=== PATIENT | female | born 1935 | race Caucasian/White ===

== ENCOUNTER 2016-11-18 15:53 | Inpatient (IN) | payer MEDICARE, OTHER ==
[~2016-11-18] VITALS: Ht 157.5 cm; Wt 64.1 kg
[2016-11-18 16:54] LABS: ADD SCAN DIFF NO
[2016-11-18 16:58] LABS: BASOPHILS % 0.6 % (0.0-2.0); EOSINOPHILS # 0.1 10^3/ul (0.0-0.5); EOSINOPHILS % 1.9 % (0.0-7.0); HEMATOCRIT 39.4 % (37.0-47.0); HEMOGLOBIN 12.7 g/dl (12.0-16.0); LYMPHOCYTES # 1.2 10^3/ul (0.8-2.9); LYMPHOCYTES % 19.6 % (15.0-51.0); MEAN CORPUSCULAR HEMOGLOBIN 27.7 pg (29.0-33.0); MEAN CORPUSCULAR HGB CONC 32.2 g/dl (32.0-37.0); MEAN PLATELET VOLUME 9.1 fl (7.4-10.4); MONOCYTE # 0.5 10^3/ul (0.3-0.9); MONOCYTES % 7.6 % (0.0-11.0); NEUTROPHIL # 4.4 10^3/ul (1.6-7.5); NEUTROPHILS % 70.1 % (39.0-77.0); PLATELET COUNT 209 10^3/UL (140-415); RED BLOOD COUNT 4.58 10^6/ul (4.20-5.40); RED CELL DISTRIBUTION WIDTH 13.5 % (11.5-14.5); WHITE BLOOD COUNT 6.2 10^3/ul (4.8-10.8)
[2016-11-18] MEDS ORDERED: LOSA25TA5 PO (17:03)
[2016-11-18] MEDS ORDERED: HYDR12.58 PO (17:04)
[2016-11-18 17:13] LABS: INR 1.09; PROTIME 14.1 Sec (12.2-14.2); PT RATIO 1.1
[2016-11-18 17:14] LABS: PARTIAL THROMBOPLASTIN TIME 30.2 Sec (25.0-35.0)
[2016-11-18 17:26] LABS: ALANINE AMINOTRANSFERASE 31 IU/L (13-69); ALBUMIN 4.2 g/dl (3.3-4.9); ALBUMIN/GLOBULIN RATIO 1.68; ALKALINE PHOSPHATASE 84 IU/L (42-121); ANION GAP 11 (8-16); ASPARTATE AMINO TRANSFERASE 27 IU/L (15-46); BILIRUBIN,INDIRECT 0.1 mg/dl (0-1.1); BILIRUBIN,TOTAL 0.1 mg/dl (0.2-1.3); BLOOD UREA NITROGEN 14 mg/dl (7-20); CALCIUM 9.8 mg/dl (8.4-10.2); CARBON DIOXIDE 28 mmol/L (21-31); CHLORIDE 103 mmol/L (97-110); CREATININE 0.68 mg/dl (0.44-1.00); GLUCOSE 125 mg/dl (70-220); POTASSIUM 3.3 mmol/L (3.5-5.1); SODIUM 139 mmol/L (135-144); TOTAL PROTEIN 6.7 g/dl (6.1-8.1)
[2016-11-18 17:33] LABS: B-TYPE NATRIURETIC PEPTIDE 74 PG/ML (0-450)
[2016-11-18 17:37] LABS: TROPONIN-I < 0.012 ng/ml (0.00-0.12)
--- NOTE | 2016-11-18 18:01 | RADRPT ---
PROCEDURE: XR Chest. CLINICAL INDICATION: Chest pain TECHNIQUE: Chest AP portable. COMPARISON: No comparison available. FINDINGS: The mediastinal structures are unremarkable. There is calcification of the thoracic aorta (consiste nt with atherosclerosis). There is mild cardiomegaly. The pulmonary vascularity is normal. There is mild left basilar subsegmental atelectasis. No consolidation is identified. The pleural spaces are unremarkable. There are senescent changes of the axial skeleton. IMPRESSION: Calcification of the thoracic aorta (consistent with atherosclerosis) Mild cardiomegaly Mild left basilar subsegmental atelectasis No consolidation or failure identified RPTAT: HGDB .Manuelito Young MD, MD Date Time Electronically viewed and signed by .Manuelito Young MD, on 11/18/2016 18:01 .B/
[2016-11-18] MEDS ORDERED: POTASSIUM CHLORIDE (SR) 20 MEQ TAB PO STA (18:06)
--- NOTE | 2016-11-18 18:41 | ERA ---
ER Documentation Chief Complaint Date/Time DATE: 11/18/16 TIME: 18:32 Chief Complaint CHEST PAIN SENT FROM MD OFFICE; 16 2ASA 1 NITRO GIVEN HPI 81-year-old female with a history of cardiac problems including mitral and aortic valve problems and hypertension presenting with shortness of breath and chest pain from Dr. Pro's office. She states that for the past 3 days she has been feeling short of breath especially with exertion. She has had no associated cough. Today she started feeling some chest pressure, not pleuritic. Chest pressure is nonradiating. She has associated lightheadedness and feels like "something is not getting to my brain". She denies any fever, chills, nausea, vomiting, hematochezia, melena, abdominal pain, or dysuria. She has never had symptoms like this before. She denies any recent surgery, immobilization, or travel. No history of cancer or blood clots. She was given aspirin 162 mg prior to transfer to the ED ROS All systems reviewed and are negative except as per history of present illness. Medications Home Meds Reported Medications Hydrochlorothiazide* (Hydrochlorothiazide*) 12.5 Mg Tablet, 12.5 MG PO DAILY, # 30 TAB 11/18/16 Losartan Potassium* (Losartan Potassium*) 25 Mg Tablet, 25 MG PO DAILY, TAB 11/18/16 Allergies Allergies: Coded Allergies: No Known Allergy (Unverified , 11/18/16) PMhx/Soc Hx Cardiac Disorders: Yes (Mitral and aortic valve problem, specifical problem unknown per patient. Hypertension.) Hx Miscellaneous Medical Probl: No Hx Alcohol Use: No Hx Substance Use: No Hx Tobacco Use: No Smoking Status: Never smoker FmHx Family History: No diabetes Physical Exam Vitals Vital Signs Date Time Temp Pulse Resp B/P Pulse Ox O2 Delivery O2 Flow Rate FiO2 11/18/16 18:36 74 18 125/63 96 Room Air 11/18/16 16:25 Nasal Cannula 11/18/16 16:02 98.0 81 18 139/78 96 Physical Exam Const: Well-appearing, no apparent distress, nontoxic, nondiaphoretic Head: Atraumatic Eyes: Normal Conjunctiva ENT: Normal External Ears, Nose and Mouth. Neck: Full range of motion. No JVD. No meningismus. Resp: Diminished breath sounds at the posterior lower lung davis, left greater than right, no wheezing rales or rhonchi Cardio: Regular rate and rhythm, distant heart sounds, no obvious murmurs auscultated, however exam limited. 2+ radial pulses bilaterally, equal. 2+ DP and PT pulses bilaterally. Abd: Soft, non tender, non distended. Normal bowel sounds Skin: No petechiae or rashes Back: No midline or flank tenderness Ext: No cyanosis, or edema. No calf tenderness to palpation Neur: Awake and alert and oriented 3, cranial nerves intact, strength and sensations intact in all 4 extremities Psych: Normal Mood and Affect Result Diagram: 11/18/16 1645 11/18/16 1645 Results 24 hrs Laboratory Tests Test 11/18/16 16:45 White Blood Count 6.210^3/ul Red Blood Count 4.5810^6/ul Hemoglobin 12.7g/dl Hematocrit 39.4% Mean Corpuscular Volume 86.0fl Mean Corpuscular Hemoglobin 27.7pg Mean Corpuscular Hemoglobin Concent 32.2g/dl Red Cell Distribution Width 13.5% Platelet Count 53677^3/UL Mean Platelet Volume 9.1fl Neutrophils % 70.1% Lymphocytes % 19.6% Monocytes % 7.6% Eosinophils % 1.9% Basophils % 0.6% Nucleated Red Blood Cells % 0.0/100WBC Neutrophils # 4.410^3/ul Lymphocytes # 1.210^3/ul Monocytes # 0.510^3/ul Eosinophils # 0.110^3/ul Basophils # 0.010^3/ul Nucleated Red Blood Cells # 0.010^3/ul Prothrombin Time 14.1Sec Prothrombin Time Ratio 1.1 INR International Normalized Ratio 1.09 Activated Partial Thromboplast Time 30.2Sec D-Dimer 276.00ng/ml D-Dimer Comment Sodium Level 139mmol/L Potassium Level 3.3mmol/L Chloride Level 103mmol/L Carbon Dioxide Level 28mmol/L Anion Gap 11 Blood Urea Nitrogen 14mg/dl Creatinine 0.68mg/dl Glucose Level 125mg/dl Calcium Level 9.8mg/dl Total Bilirubin 0.1mg/dl Direct Bilirubin 0.00mg/dl Indirect Bilirubin 0.1mg/dl Aspartate Amino Transf (AST/SGOT) 27IU/L Alanine Aminotransferase (ALT/SGPT) 31IU/L Alkaline Phosphatase 84IU/L Troponin I < 0.012ng/ml B-Type Natriuretic Peptide 74PG/ML Total Protein 6.7g/dl Albumin 4.2g/dl Globulin 2.50g/dl Albumin/Globulin Ratio 1.68 Current Medications Medications (Trade) Dose Ordered Sig/Nas Route PRN Reason Start Time Stop Time Status Last Admin Dose Admin Potassium Chloride (Klor-Con 20) 40 meq ONCE STAT PO 11/18/16 18:06 11/18/16 18:07 DC 11/18/16 18:31 Ondansetron HCl (Zofran Inj) 4 mg ER BRIDGE PRN IV NAUSEA AND/OR VOMITING 11/18/16 19:00 11/19/16 18:59 Acetaminophen (Tylenol Tab) 650 mg ER BRIDGE PRN PO MILD PAIN/FEVER 11/18/16 19:00 11/19/16 18:59 Procedures/MDM EKG: Rate/Rhythm: Sinus rhythm with first-degree AV block QRS, ST, T-waves: Right bundle branch block, no changes consistent w/ acute ischemia Impression: No evidence of ischemia or arrhythmia Chest x-ray: IMPRESSION: Calcification of the thoracic aorta (consistent with atherosclerosis) Mild cardiomegaly Mild left basilar subsegmental atelectasis No consolidation or failure identified RPTAT: HGDB .Manuelito Young MD, MD Date Time Electronically viewed and signed by .Manuelito Young MD, MD on 11/18/2016 18:01 Labs: CBC and CMP normal other than mild hypokalemia. Troponin within normal limits. BNP within normal limits. D-dimer normal [facility] Patients symptoms are concerning for a cardiac etiology. Other etiologies considered were PE, aortic dissection, pneumonia, pneumothorax, esophageal rupture. EKG showed no acute ischemia but was not normal. Initial troponin negative. CXR grossly unremarkable. However patient has an intermediate risk of adverse events. Plan to admit for further evaluation. At this time, she is low risk for PE per well's criteria, so d-dimer was ordered as everything else is normal to evaluate for any possibility of PE. Aspirin already given prior to arrival. Patient is not safe for discharge and will need inpatient monitoring and further evaluation. Further workup will be deferred to the inpatient team. Accepting Care Team: Current data and ongoing care discussed. Time: Time of admission Primary Provider: Ronen Consulting: none Outstanding Data: none Departure Diagnosis: Primary Impression: Chest pressure Additional Impressions: Dyspnea Qualified Code: R06.02 - Shortness of breath Hypokalemia Condition: Fair STEVE ROTHMAN MD Nov 18, 2016 18:41
[2016-11-18] MEDS ORDERED: ONDANSETRON 4 MG INJ IV PRN ×2 (19:00→22:00)
[2016-11-18] MEDS ORDERED: ACETAMINOPHEN 325 MG TAB PO PRN ×2 (19:00→22:00)
[2016-11-18 21:10] VITALS: Ht 157.5 cm; Wt 64.1 kg
[2016-11-18 21:15] VITALS: BP 150/67; RESP 18
[2016-11-18 21:26] VITALS: PULSE 80
[2016-11-18] MEDS ORDERED: morphine 2 MG INJ IV PRN (22:00)
[2016-11-18] MEDS ORDERED: NACL 0.9% 3 ML SYG IV SCH (22:00)
[2016-11-18] MEDS: SOD CHLORIDE 0.9% 1,000 ML IV SCH (22:12)
[2016-11-18 22:50] LABS: CK-MB 1.55 ng/ml (0.0-2.4)
[2016-11-18 22:54] LABS: TROPONIN-I 0.231 ng/ml (0.00-0.12)
[2016-11-18 23:49] VITALS: BP 143/63; RESP 18
[2016-11-19] VITALS (25 sets, daily range): BP systolic 121–140; BP diastolic 48–73; PULSE 63–84; RESP 15–37
--- NOTE | 2016-11-19 02:12 | HP ---
Date/Time of Note Date/Time of Note DATE: 11/19/16 TIME: 02:07 Assessment/Plan VTE Prophylaxis VTE Prophylaxis Intervention: LMWH Lines/Catheters IV Catheter Type (from Nrs): Saline Lock Assessment/Plan Chief Complaint/Hosp Course This is a 81 year old female being admitted to the telemetry floor for: 1. Chest pain: rule out ACS. Currently patient is chest pain free. EKG does not show any acute ST elevation. There does appear to be a right bundle branch block. We will will trend cardiac enzymes, first set of cardiac enzymes were negative. Morphine prn chest pain. Consult cardiology. Echo in the AM. Lipid panel. 2. HTN: continue hctz, arb #3 hypokalemia: We will replete potassium check in the a.m. #4 DVT and GI prophylaxis: Lovenox, Protonix Problems: HPI/ROS Admit Date/Time Admit Date/Time Nov 18, 2016 at 18:55 Hx of Present Illness Chief complaint: chest pain x 3 days 81-year-old female with a history of cardiac problems including mitral and aortic valve problems and hypertension presenting with shortness of breath and chest pain from Dr. Pro's office. She states that for the past 3 days she has been feeling short of breath especially with exertion. She has had no associated cough. Today she started feeling some chest pressure, not pleuritic. Chest pressure is nonradiating. She has associated lightheadedness and feels like "something is not getting to my brain". She denies any fever, chills, nausea, vomiting, hematochezia, melena, abdominal pain, or dysuria. She has never had symptoms like this before. She denies any recent surgery, immobilization, or travel. No history of cancer or blood clots. She was given aspirin 162 mg prior to transfer to the ED. allergies: nkda Medications: See AUG ROS Const: As per HPI Eyes : No pain discharge or redness or change in visual acuity ENT: No pain, sore throat, congestion, congestion, dysphagia or discharge Respiratory: No shortness of breath, cough, sputum, wheezing, or pleuritic pain Cardiovascular: As per HPI GI : no change in appetite, abdominal pain, nausea, vomiting, diarrhea, constipation, or change in the color his stool Genitourinary: No dysuria, hematuria, flank pain , discharge or CVA tenderness Musculoskeletal: No joint pain, back pain, neck pain, restricted range of motion in neck or joints Skin: No rash, bruising or hives Neuro: No headache, dizziness, syncope, seizure, focal weakness Endocrine: No polyuria, polydipsia, temperature intolerance Psych: No hallucination, depression, anxiety or suicidal ideation PMH/Family/Social Past Medical History mitral and aortic valve "problems", HTN Past Surgical History tubal ligation, intestinal surgery? Family History Significant Family History: no pertinent family hx Social History Alcohol Use: none Smoking Status: Never smoker Drug Use: none Exam/Review of Systems Vital Signs Vitals Vital Signs Date Time Temp Pulse Resp B/P Pulse Ox O2 Delivery O2 Flow Rate FiO2 11/19/16 00:07 69 11/18/16 23:49 97.9 18 143/63 96 11/18/16 21:30 Nasal Cannula 2.0 Exam Exam General: Patient is well-developed well-nourished The patient is alert oriented -3 lying comfortably in bed. HEENT: Atraumatic, normocephalic. The pupils are equal, round and reactive. Extraocular motor are intact Neck: Supple with full range of motion. No rigidity or meningismus Chest: Nontender Lungs: Clear to auscultation bilaterally no crackles rales or wheezing Heart: Normal S1-S2, Regular rhythm and rate. No murmurs appreciated Abdomen: Soft , nontender, nondistended , bowel sounds are present. No guarding no rebound tenderness , No masses or organomegaly. Extremities: Normal to inspection, no edema no cyanosis Neurologic: Normal mental status, speech normal, cranial nerves II through XII are intact, motor and sensory are intact, no focal weakness Additional Comments EKG: Rate/Rhythm: Sinus rhythm with first-degree AV block QRS, ST, T-waves: Right bundle branch block, no changes consistent w/ acute ischemia As per ED physician documentation PROCEDURE: XR Chest. CLINICAL INDICATION: Chest pain TECHNIQUE: Chest AP portable. COMPARISON: No comparison available. FINDINGS: The mediastinal structures are unremarkable. There is calcification of the thoracic aorta (consistent with atherosclerosis). There is mild cardiomegaly. The pulmonary vascularity is normal. There is mild left basilar subsegmental atelectasis. No consolidation is identified. The pleural spaces are unremarkable. There are senescent changes of the axial skeleton. IMPRESSION: Calcification of the thoracic aorta (consistent with atherosclerosis) Mild cardiomegaly Mild left basilar subsegmental atelectasis No consolidation or failure identified RPTAT: HGDB .Manuelito Young MD, Date Time Electronically viewed and signed by .Manuelito Young MD, on 11/18/2016 18:01 Labs Result Diagram: 11/18/16 1645 11/18/16 1645 Medications Medications Current Medications Sodium Chloride (NS) 1,000 ml @ 40 mls/hr Q24H IV Last administered on 22:12; Admin Dose 40 MLS/HR; Start 11/18/16 at 21:41 Ondansetron HCl (Zofran Inj) 4 mg Q6H PRN IV NAUSEA AND/OR VOMITING; Start at 22:00 Acetaminophen (Tylenol Tab) 650 mg Q6H PRN PO PAIN LEVEL 1-3 OR FEVER; Start at 22:00 Morphine Sulfate (morphine) 2 mg Q4H PRN IV PAIN LEVEL 7-10 Last administered on 11/18/16 22:12; Admin Dose 2 MG; Start 11/18/16 at 22:00 Pantoprazole (Protonix Iv) 40 mg DAILY@06 IV ; Start 11/19/16 at 06:00 Enoxaparin Sodium (Lovenox) 40 mg DAILY SC ; Start 11/19/16 at 09:00 Hydrochlorothiazide (Hydrochlorothiazide) 12.5 mg DAILY PO ; Start 11/19/16 at 09:00 Losartan Potassium (Cozaar) 25 mg DAILY PO ; Start 11/19/16 at 09:00 ANA SALGADO Nov 19, 2016 02:12
[2016-11-19] MEDS ORDERED: HEPARIN 1000 UNITS/ML 10 ML INJ IV ONE (02:30)
[2016-11-19] MEDS: HEPARIN 25000 UNITS/D5W 250 ML IV SCH ×2 (02:44→09:30)
[2016-11-19] MEDS: PANTOPRAZOLE 40 MG INJ IV SCH (05:37)
[2016-11-19 07:53] LABS: ADD SCAN DIFF NO
[2016-11-19 07:56] LABS: BASOPHILS % 0.6 % (0.0-2.0); EOSINOPHILS # 0.1 10^3/ul (0.0-0.5); EOSINOPHILS % 2.8 % (0.0-7.0); HEMATOCRIT 37.2 % (37.0-47.0); HEMOGLOBIN 12.4 g/dl (12.0-16.0); LYMPHOCYTES # 1.4 10^3/ul (0.8-2.9); LYMPHOCYTES % 29.1 % (15.0-51.0); MEAN CORPUSCULAR HGB CONC 33.3 g/dl (32.0-37.0); MEAN CORPUSCULAR VOLUME 87.1 fl (82.0-101.0); MEAN PLATELET VOLUME 9.1 fl (7.4-10.4); MONOCYTE # 0.4 10^3/ul (0.3-0.9); MONOCYTES % 8.9 % (0.0-11.0); NEUTROPHIL # 2.9 10^3/ul (1.6-7.5); NEUTROPHILS % 58.4 % (39.0-77.0); PLATELET COUNT 197 10^3/UL (140-415); RED BLOOD COUNT 4.27 10^6/ul (4.20-5.40); RED CELL DISTRIBUTION WIDTH 13.4 % (11.5-14.5)
[2016-11-19 08:18] LABS: CREATINE KINASE 23 IU/L (23-200)
[2016-11-19] MEDS: LOSARTAN 25 MG TAB PO SCH (08:29)
[2016-11-19] MEDS ORDERED: HEPARIN 1000 UNITS/ML 10 ML INJ IV PRN (08:30)
[2016-11-19 08:31] LABS: CK-MB 0.45 ng/ml (0.0-2.4)
[2016-11-19 08:46] LABS: TROPONIN-I < 0.012 ng/ml (0.00-0.12)
[2016-11-19] MEDS ORDERED: HYDROCHLOROTHIAZIDE 12.5 MG CAP PO SCH (09:00)
[2016-11-19] MEDS ORDERED: ENOXAPARIN 40 MG/0.4 ML SYG SC SCH (09:00)
[2016-11-19] MEDS ORDERED: FENTAnyl 50 MCG/ML VIAL ONE (14:14)
[2016-11-19] MEDS ORDERED: VERAPAMIL 5 MG INJ ONE (14:14)
[2016-11-19] MEDS ORDERED: MIDAZOLAM 1 MG/ML 2 ML INJ ONE (14:14)
[2016-11-19] MEDS ORDERED: NITROGLYCERIN (IC) 100 MCG/ML INJ ONE (14:14)
[2016-11-19] MEDS ORDERED: HEPARIN 1000 UNITS/ML 10 ML INJ ONE (14:14)
[2016-11-19] MEDS ORDERED: IODIXANOL LOCM 100 ML BTL ONE ×2 (14:14→15:10)
[2016-11-19] MEDS ORDERED: LIDOCAINE 1% (MDV) 20 ML INJ ONE (14:14)
--- NOTE | 2016-11-19 14:16 | RADRPT ---
Echocardiogram Report Patient Name: ELE WEEKS Gender: Female Date: 1935 Study Date: 19-Nov-2016 Chopped Strand Operator: [facility] Location: 5545 Ref. Physician: ANA SALGADO Quality: Technically Difficult Study Procedures: Transthoracic echocardiogram with complete 2D, M-Mode, and doppler examination. Indications: Chest Pain. 2D/M Mode Doppler Measurement Value Normal Ranges Measurement Value Normal Ranges LVIDd 2D 4.7 3.5 - 5.6 cm AV Peak Binu 1.2 m/sec LVIDs 2D 3.2 2.1 - 4.1 cm AV Peak PG 5.5 mmHg LVPWd 2D 1.2 0.6 - 1.1 cm LVOT Peak Binu 1.1 m/sec IVSd 2D 1.2 0.6 - 1.1 cm LVOT Peak PG 4.8 mmHg AoR Diam 2D 3.0 2.0 - 3.7 cm MV E Peak Binu 0.8 m/sec EDV 2D 100.2 cm3 MV A Peak Binu 1.2 m/sec ESV 2D 32.8 cm3 MV E/A 0.6 LA Dimen 2D 4.0 2.3 - 4.0 cm MV Decel Time 122 msec MV Decel [place] 6 MV E/A 0.6 Findings Left Ventricle: Normal left ventricular systolic function. Normal left ventricular cavity size. Left ventricular wall thickness upper limits of normal. Ejection fraction is visually estimated at 65 %. Abnormal Diastolic Function. Right Ventricle: Normal right ventricular size. Normal right ventricular systolic function. Left Atrium: The left atrium is normal in size. Right Atrium: There is mild enlargement of right atrium. Mitral Valve: Mitral valve leaflets appear mildly thickened. Mild mitral annular calcification. Mild mitral valve regurgitation. Aortic Valve: No hemodynamically significant aortic stenosis by doppler. Aortic cusps appear mildly calcified. Trace to mild aortic valve regurgitation. Tricuspid Valve: Tricuspid valve not well visualized. There is trace tricuspid regurgitation. Pulmonic Valve: Normal pulmonic valve appearance. Pericardium: Normal pericardium with no significant pericardial effusion. Aorta: Normal aortic root. IVC: Normal size and normal respiratory collapse consistent with normal right atrial pressure. Conclusions Normal left ventricular systolic function. Normal left ventricular cavity size. Left ventricular wall thickness upper limits of normal. Ejection fraction is visually estimated at 65 %. Abnormal Diastolic Function. Normal right ventricular size. Normal right ventricular systolic function. The left atrium is normal in size. There is mild enlargement of right atrium. Mild mitral valve regurgitation. No hemodynamically significant aortic stenosis by doppler. Aortic cusps appear mildly calcified. Trace to mild aortic valve regurgitation. There is trace tricuspid regurgitation. Normal pericardium with no significant pericardial effusion. Electronically Signed By: Johnny Redding 19-Nov-2016 14:15:23 -0700 Patient Name: ELE WEEKS Study Date: 19-Nov-[id number]
--- NOTE | 2016-11-19 14:22 | CONS ---
Date/Time of Note Date/Time of Note DATE: 11/19/16 TIME: 14:17 Assessment/Plan Assessment/Plan Additional Assessment/Plan Elevated troponin concerning for non-ST elevation HI Preserved ejection fraction Hypertension -Patient with symptoms of chest pressure and shortness of breath with elevated troponins. Echocardiogram with preserved ejection fraction. ECG with right bundle branch block and nonspecific ST segment abnormalities. Given her symptoms and elevated troponins, would proceed with cardiac catheterization to rule out obstructive coronary artery disease. The procedure was going to the patient and daughter at bedside including possible complications and they have agreed to proceed. Aspirin and statin therapy, beta-emi as heart rate and blood pressure permits. Consultation Date/Type/Reason Admit Date/Time Nov 18, 2016 at 18:55 Type of Consultation: cv Reason for Consultation Chest pain and elevated troponin Hx of Present Illness This is an 81-year-old female with past medical history of hypertension who presents with chest pain and shortness of breath. Patient has been having intermittent symptoms over the past 2-3 days but worsened yesterday. She did see her physician and was told to go to the emergency room for further evaluation and care. Shortness of breath has been worse with exertion. She also has been complaining of chest pressure yesterday with associated headache. She denies any dizziness or lightheadedness. Her symptoms have improved since she came to the emergency room. She denies any fevers or chills. Has been complaining of cough which has been minimally productive. She denies any previous cardiac workup. History obtained from the patient and daughter at bedside as well as from medical chart. 12 point review of systems was performed with all pertinent positives and negatives mentioned above and all else is negative. 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 Family History Significant Family History: no pertinent family hx Social History Alcohol Use: none Smoking Status: Never smoker Drug Use: none Other Social History Lives at home with family Exam/Review of Systems Vital Signs Vitals Vital Signs Date Time Temp Pulse Resp B/P Pulse Ox O2 Delivery O2 Flow Rate FiO2 11/19/16 12:03 72 11/19/16 11:57 98.0 19 131/73 95 11/19/16 08:29 Nasal Cannula 2.0 Intake and Output 11/18/16 11/18/16 11/19/16 15:00 23:00 07:00 Intake Total 637.6 ml Balance 637.6 ml Exam No apparent distress, Malaysian-speaking, family at bedside Constitutional: alert, oriented Head: normocephalic Neck: supple Respiratory: other (Coarse breath sounds bilaterally, no wheezing) Cardiovascular: other (S1-S2 heard), regular rate and rhythm, systolic murmur ( Faint systolic murmur loudest right upper sternal border) Gastrointestinal: bowel sounds, non-tender, other (No guarding), soft Extremities: other (No edema or cyanosis) Results Result Diagram: 11/19/16 0656 11/18/16 1645 Results 24 hrs Laboratory Tests Test 11/18/16 16:45 11/18/16 22:00 11/19/16 06:56 White Blood Count 6.2 5.0 Red Blood Count 4.58 4.27 Hemoglobin 12.7 12.4 Hematocrit 39.4 37.2 Mean Corpuscular Volume 86.0 87.1 Mean Corpuscular Hemoglobin 27.7 L 29.0 Mean Corpuscular Hemoglobin Concent 32.2 33.3 Red Cell Distribution Width 13.5 13.4 Platelet Count 209 197 Mean Platelet Volume 9.1 9.1 Neutrophils % 70.1 58.4 Lymphocytes % 19.6 29.1 Monocytes % 7.6 8.9 Eosinophils % 1.9 2.8 Basophils % 0.6 0.6 Nucleated Red Blood Cells % 0.0 0.0 Neutrophils # 4.4 2.9 Lymphocytes # 1.2 1.4 Monocytes # 0.5 0.4 Eosinophils # 0.1 0.1 Basophils # 0.0 0.0 Nucleated Red Blood Cells # 0.0 0.0 Prothrombin Time 14.1 Prothrombin Time Ratio 1.1 INR International Normalized Ratio 1.09 Activated Partial Thromboplast Time 30.2 106.4 *H D-Dimer 276.00 D-Dimer Comment Sodium Level 139 Potassium Level 3.3 L Chloride Level 103 Carbon Dioxide Level 28 Anion Gap 11 Blood Urea Nitrogen 14 Creatinine 0.68 Glucose Level 125 Calcium Level 9.8 Total Bilirubin 0.1 L Direct Bilirubin 0.00 Indirect Bilirubin 0.1 Aspartate Amino Transf (AST/SGOT) 27 Alanine Aminotransferase (ALT/SGPT) 31 Alkaline Phosphatase 84 Troponin I < 0.012 0.231 *H < 0.012 B-Type Natriuretic Peptide 74 Total Protein 6.7 Albumin 4.2 Globulin 2.50 Albumin/Globulin Ratio 1.68 Creatine Kinase 144 23 Creatine Kinase Index 1.1 2.0 Creatinine Kinase MB (Mass) 1.55 0.45 Hemoglobin A1c 5.7 Medications Medications Current Medications Sodium Chloride (NS) 1,000 ml @ 40 mls/hr Q24H IV Last administered on 22:12; Admin Dose 40 MLS/HR; Start 11/18/16 at 21:41 Ondansetron HCl (Zofran Inj) 4 mg Q6H PRN IV NAUSEA AND/OR VOMITING; Start at 22:00 Acetaminophen (Tylenol Tab) 650 mg Q6H PRN PO PAIN LEVEL 1-3 OR FEVER; Start at 22:00 Morphine Sulfate (morphine) 2 mg Q4H PRN IV PAIN LEVEL 7-10 Last administered on 11/18/16 22:12; Admin Dose 2 MG; Start 11/18/16 at 22:00 Pantoprazole (Protonix Iv) 40 mg DAILY@06 IV Last administered on 11/19/16 05: 37; Admin Dose 40 MG; Start 11/19/16 at 06:00 Losartan Potassium 25 mg 25 mg DAILY PO Last administered on 11/19/16 08:29; Admin Dose 25 MG; Start 11/19/16 at 09:00 Heparin Sodium (Porcine) (Heparin 74895 Units/250 ml) 250 ml @ 8 mls/hr Q24H IV Last administered on 11/19/16 09:30; Admin Dose 6.5 MLS/HR; Start 11/19/16 at 02:30 Procedures Procedures ECG demonstrates sinus rhythm with first-degree AV block with CT interval 234 ms , right bundle branch block, nonspecific STT wave abnormalities Johnny Redding DO Nov 19, 2016 14:22
[2016-11-19] MEDS ORDERED: ASPIRIN 325 MG TAB ONE (14:32)
[2016-11-19] MEDS ORDERED: ASPIRIN 81 MG TAB ONE (14:36)
[2016-11-19] MEDS ORDERED: SOD CHLORIDE 0.9% 500 ML ONE (15:10)
[2016-11-19] MEDS ORDERED: SOD CHLORIDE 0.9% 1,000 ML IV SCH (15:53)
--- NOTE | 2016-11-19 20:19 | CARRPT ---
DATE OF PROCEDURE: 11/19/2016 PROCEDURES: 1. Left heart catheterization. 2. Right and left coronary angiogram. 3. Interpretation and supervision of right and left coronary angiogram. 4. Left ventricular pressure measurements. 5. Left radial artery approach. PATIENT HISTORY: This is an 81-year-old female who presents with chest pain and shortness of breath with elevated troponin. FINDINGS: HEMODYNAMICS: 1. LV pressure was 139/-15 with an EDP of 12. 2. Aortic pressure was 140/54. CORONARY ANATOMY: 1. Left main is a large caliber vessel with no significant disease. 2. Circumflex is a large caliber vessel with mid 10% stenosis, otherwise no other significant disea se. 3. LAD is a medium to large caliber vessel with mid 20% stenosis. 4. RCA is a medium caliber vessel and is dominant. There is a mid 10% stenosis and a distal 10% st enosis. DESCRIPTION OF PROCEDURE: The patient was brought to laborer rags after informed consent. The patient was prepped and draped as per protocol. Left radial access was obtained. The patient with signific ant tortuosity noted in the left radial artery with initial wire advancement and we did do an angiog katie of the left upper arm arterial. We next switched out for a "baby J" wire and were able to cross the tortuosity and use a [place] 5-[place] catheter. We first engaged the left main and angiogram was performed. We next engaged the RCA and angiogram was performed. We next entered the left ventricl e and pressure measurements were obtained as well as pullback. All catheters and wires were removed . There were no immediate complications. DIAGNOSIS: Mild nonobstructive coronary artery disease. COMPLICATIONS: None. BLOOD LOSS: Minimal. RECOMMENDATIONS: Medical management. Dictated By: EDWIN MOBLEY/ONIEL Conf#: [id number] DID#: [id number]
[2016-11-19] MEDS ORDERED: ATORVASTATIN 40 MG TAB PO SCH (21:00)
[2016-11-19] MEDS: METOPROLOL 25 MG TAB PO SCH (21:20)
[2016-11-20] VITALS (8 sets, daily range): BP systolic 119–133; BP diastolic 58–63; PULSE 66–73; RESP 18–20
[2016-11-20] MEDS: SOD CHLORIDE 0.9% 1,000 ML IV SCH (05:55)
[2016-11-20] MEDS: PANTOPRAZOLE 40 MG INJ IV SCH (05:55)
[2016-11-20 08:10] LABS: ADD SCAN DIFF NO
[2016-11-20 08:15] LABS: BASOPHILS % 0.8 % (0.0-2.0); EOSINOPHILS # 0.2 10^3/ul (0.0-0.5); EOSINOPHILS % 3.7 % (0.0-7.0); HEMATOCRIT 36.4 % (37.0-47.0); HEMOGLOBIN 11.6 g/dl (12.0-16.0); LYMPHOCYTES # 1.2 10^3/ul (0.8-2.9); LYMPHOCYTES % 23.4 % (15.0-51.0); MEAN CORPUSCULAR HEMOGLOBIN 28.2 pg (29.0-33.0); MEAN CORPUSCULAR HGB CONC 31.9 g/dl (32.0-37.0); MEAN CORPUSCULAR VOLUME 88.6 fl (82.0-101.0); MEAN PLATELET VOLUME 9.2 fl (7.4-10.4); MONOCYTE # 0.4 10^3/ul (0.3-0.9); MONOCYTES % 8.3 % (0.0-11.0); NEUTROPHIL # 3.1 10^3/ul (1.6-7.5); NEUTROPHILS % 63.6 % (39.0-77.0); PLATELET COUNT 198 10^3/UL (140-415); RED BLOOD COUNT 4.11 10^6/ul (4.20-5.40); RED CELL DISTRIBUTION WIDTH 13.5 % (11.5-14.5); WHITE BLOOD COUNT 4.9 10^3/ul (4.8-10.8)
[2016-11-20] MEDS: METOPROLOL 25 MG TAB PO SCH (08:43)
[2016-11-20] MEDS: LOSARTAN 25 MG TAB PO SCH (08:44)
[2016-11-20 08:46] LABS: MAGNESIUM 2.2 mg/dl (1.7-2.5); PHOSPHORUS 2.9 mg/dl (2.5-4.9)
[2016-11-20] MEDS ORDERED: ASPIRIN 81 MG TAB PO SCH (09:00)
[2016-11-20 11:31] LABS: CHOL/HDL RATIO 4.7 RATIO
[2016-11-20 11:32] LABS: CALCIUM 9.1 mg/dl (8.4-10.2); CREATININE 0.65 mg/dl (0.44-1.00); POTASSIUM 3.7 mmol/L (3.5-5.1)
--- NOTE | 2016-11-20 11:45 | PDOCDIS ---
Discharge Instructions DIAGNOSIS Discharge Diagnosis: Mild nonobstructive CAD. CONDITION Patient Condition: Stable HOME CARE INSTRUCTIONS: Diet Instructions: Low Fat /CholesterolSpecial Diet: 2 gr Na FOLLOW UP/APPOINTMENTS Appointments Jose F Rizvi MD Specialty: Internal Medicine Office Address: [address] [place] [address] [place], [place] [id number] Office OTHER ORDERS: Other Orders: 1. Take a low-cholesterol diet. 2. Take medications as per prescription. 3. Resume activities as tolerated. 4. Follow-up with your primary care physician 1 week. If you do not have a primary care physician, please call Dr. Jose F Rizvi's office. 5. Please call 911 or go to the nearest emergency room if you have any significant chest pain or shortness of breath. SUNIL NICOLE NP Nov 20, 2016 11:45
[2016-11-20] MEDS ORDERED: ATOR40TA68 PO (11:46)
[2016-11-20] MEDS ORDERED: ASPI81TA3 PO (11:48)
[2016-11-20 13:02] LABS: ALBUMIN 3.4 g/dl (3.3-4.9); ALBUMIN/GLOBULIN RATIO 3.4; BILIRUBIN,INDIRECT 0.2 mg/dl (0-1.1); BILIRUBIN,TOTAL 0.2 mg/dl (0.2-1.3); CALCIUM 9.8 mg/dl (8.4-10.2); CREATININE 0.61 mg/dl (0.44-1.00); POTASSIUM 5.8 mmol/L (3.5-5.1); TOTAL PROTEIN 4.4 g/dl (6.1-8.1)
[2016-11-20 13:37] LABS: THYROID STIMULATING HORMONE 2.15 MIU/L (0.465-4.680)
--- NOTE | 2016-11-20 20:53 | DS ---
DATE OF ADMISSION: 11/18/2016 DATE OF DISCHARGE: 11/20/2016 FINAL DIAGNOSES: 1. Mild nonobstructive coronary artery disease. 2. Essential hypertension. 3. Dyslipidemia. 4. Hyperkalemia, resolved. CONSULTATION: Dr. Johnny Redding, Cardiology. HOSPITAL COURSE: This is an 81-year-old female with past medical history of essential hypertension who came to the emergency room with chief complaint of dyspnea and chest pain from Dr. Pro's office. As per the patient, she has been feeling short of breath for the past 3 days, specifically with exertion. There was no associated cough. The patient also verbalized lightheadedness. The patient denied any fevers, chills, nausea, vomiting, hematochezia, melena, abdominal pain or dysuria. Provided the patient's history of present illness and her comorbidities, a clinical decision was made to admit the patient to inpatient setting to have her further evaluated. The patient was admitted to inpatient telemetry floor. A cardiology consult was obtained. Serial troponins were ordered. A 2D echocardiogram was ordered. The patient's second set of troponin was elevated at 0.231. The patient was already started on aspirin. The patient was taken to the dental laboratory assistant by Cardiology , and the patient underwent a left heart catheterization that showed mild nonobstructive coronary artery disease. Cardiology recommended medical management. The patient was started on statins. The patient was noticed to have dyslipidemia with suboptimal HDL. The patient's hemoglobin A1c was 5.7. The patient's 2D echocardiogram showed preserved left ventricular ejection fraction. The patient's chest x-ray showed mild cardiomegaly with mild left basilar subsegmental atelectasis with no evidence of consolidation or failure. The patient had hypokalemia on the day of admission followed by hyperkalemia with resolution of potassium imbalance at the time of discharge. The patient was seen and evaluated by Physical Therapy, and Physical Therapy recommended home health for home safety and home PT evaluation. Hence, home health was ordered. The patient had a stable hospital course. The patient was cleared by Cardiology to be discharged home. The patient denied any complaints at the time of discharge. The patient was walked around the unit under the supervision of the RN without any significant distress. DISCHARGE DISPOSITION AND PLAN: The patient will be discharged home today. The patient was instructed to take a low-cholesterol diet. She was instructed to take medications as per prescription. She was instructed to resume activities as tolerated. The patient was instructed to follow up with her primary care physician in 1 week and if she does not have a primary care physician to please call Dr. Jose F Rizvi's office. She was instructed to call 911 or go to the nearest emergency room if she has any significant chest pain or shortness of breath. The patient verbalized understanding of her discharge instructions. CONDITION AT DISCHARGE: Stable. DISCHARGE MEDICATIONS: 1. Aspirin 81 mg p.o. daily. 2. Atorvastatin 40 mg p.o. at bedtime. 3. Hydrochlorothiazide 12.5 mg p.o. daily. 4. Losartan 25 mg p.o. daily. PERTINENT LABORATORY AND DIAGNOSTIC DATA: 1. 2D echocardiogram: Ejection fraction of 65%. Abnormal diastolic dysfunction. Mild mitral valve regurgitation. Trace to mild aortic valve regurgitation. Trace tricuspid regurgitation. 2. Left heart catheterization: Mild nonobstructive coronary artery disease. 3. Latest CBC: WBC 4.9, hemoglobin 11.6, hematocrit 36.4, platelet count 190. 4. BMP: Sodium 141, potassium 3.7, chloride 108, carbon dioxide 28, anion gap 9, BUN 10, creatinine 0.65, glucose 88, calcium 9.1, phosphorus 2.9, magnesium 2.2. 5. Hemoglobin A1c 5.7. 6. Fasting lipid panel: Triglyceride 113, total cholesterol 139, LDL 87, HDL 29. 7. Chest x-ray: Calcification of thoracic aorta. Mild cardiomegaly. Mild left basilar subsegmental atelectasis. No consolidation or failure. At this time, I would like to thank Dr. Redding for seeing the patient, doing the necessary procedures and providing clinical recommendations. The case and management of this patient was fully discussed with Dr. Cole. Approximately 35 minutes was spent on coordinating the discharge on this patient. SUNIL COLE MD, AM/ONIEL Conf#: [id number] DID#: [id number]
== END 2016-11-20 14:03 | disposition home health service (06) | DRG 287 ==
LOC: E/R 15:53 → MS4 18:55
PROVIDERS: ADMIT Internal Medicine; ATTEND Internal Medicine
PROC: B211YZZ Fluoroscopy of Multiple Coronary Arteries using Other Contrast (ICD-10-PCS; 2016-11-19)
PROC: B215YZZ Fluoroscopy of Left Heart using Other Contrast (ICD-10-PCS; 2016-11-19)
PROC: 4A023N7 Measurement of Cardiac Sampling and Pressure, Left Heart, Percutaneous Approach (ICD-10-PCS; principal; 2016-11-19 13:30)
DX: I25.10 Atherosclerotic heart disease of native coronary artery without angina pectoris (principal); E87.5 Hyperkalemia; R07.9 Chest pain, unspecified; E87.6 Hypokalemia; I10 Essential (primary) hypertension; E78.5 Hyperlipidemia, unspecified; Z79.82 Long term (current) use of aspirin
CPT/HCPCS: 36415; 71010; 80048; 80053; 80061; 82550; 82553; 83036; 83735; 83880; 84100; 84443; 84484; 85025; 85378; 85610; 85730; 93005; 93306; 93458; C1769; C1887; C9113; J1644; J2250; J2270; J3010; J7030; J7040; Q9967